=== PATIENT | male | born 1965 | race Caucasian/White ===

== ENCOUNTER 2017-05-06 15:30 | Emergency (ER) | payer SELFPAY ==
[~2017-05-06] VITALS: Ht 182.9 cm; Wt 90.7 kg
[2017-05-06 17:04] LABS: Basophils # (auto) 0 uL; Basophils % (auto) 0.2 % (0.0-2.0); Eosinophils # (auto) 0 uL; Eosinophils % (auto) 0.1 % (0.0-7.0); Hematocrit 34.6 % (41.0-53.0); Hemoglobin 11.1 g/dL (13.5-17.5); Lymphocytes # (auto) 1.3 uL; Lymphocytes % (auto) 5.7 % (10.0-50.0); Mean Corpuscular Hemoglobin 28.4 pg (28.0-32.0); Mean Corpuscular Volume 88.7 fL (80.0-100.0); Monocytes # (auto) 1.5 uL; Monocytes % (auto) 6.6 % (0.0-12.0); Neutrophils # (auto) 19.4 uL; Neutrophils % (auto) 87.4 % (37.0-80.0); Platelet Count (auto) 204 10^3/uL (140-450); Red Cell Distribution Width 13.7 % (11.8-14.3); White Blood Cell 22.3 10^3/uL (4.4-10.8)
[2017-05-06 17:24] LABS: Albumin 3.3 g/dL (3.4-5.0); BUN/Creatinine Ratio 11.9; Bilirubin, Total 0.4 mg/dL (0.2-1.0); Calcium 7.6 mg/dL (8.5-10.1); Magnesium 2.1 mg/dL (1.6-2.6); Potassium 3.6 mmol/L (3.5-5.1)
[2017-05-06] MEDS ORDERED: TETANUS-DIPTH-ACEL PERTUSSIS 0.5ML SYRG IM ONE (18:30)
[2017-05-06] MEDS ORDERED: cefTRIAXone 1GM/10ml IVPUSH 10 ML IV ONE (18:30)
[2017-05-06] MEDS ORDERED: SODIUM CHLORIDE 0.9% 2,000 ML IV ONE ×2 (18:30→22:00)
[2017-05-06] MEDS ORDERED: IOHEXOL 300 MG/ML 100ML BOTTLE IJ ONE (18:33)
[2017-05-06] MEDS ORDERED: fentaNYL CITRATE 100 MCG/2 ML VL ONE (19:57)
[2017-05-06] MEDS ORDERED: ETOMIDATE (2MG/ML) 20ML VIAL IV ONE ×2 (19:57→21:15)
[2017-05-06] MEDS ORDERED: SUCCINYLCHOLINE CHLORIDE 20 MG/ML 10ML VIAL IV ONE ×2 (19:57→21:15)
[2017-05-06] MEDS ORDERED: MIDAZOLAM DRIP 50 mg/50mL 50 ML IV ONE (20:04)
[2017-05-06] MEDS ORDERED: NOREPINEPHRINE 8 MG/250ML KIT 250 ML IV ONE (20:05)
[2017-05-06] MEDS ORDERED: HETASTARCH 500 ML IV ONE ×2 (20:07→21:30)
[2017-05-06] MEDS ORDERED: VANCOMYCIN 1GM/250ML 250 ML IV ONE ×2 (20:25→21:15)
[2017-05-06] MEDS ORDERED: VANCOMYCIN PER PHARMACY 0 MG IV SCH (20:30)
[2017-05-06] MEDS ORDERED: phytonadione 1 ML ONE (20:53)
[2017-05-06 20:54] VITALS: BP 98/54
[2017-05-06] MEDS ORDERED: fentaNYL CITRATE 100 MCG/2 ML VL IV ONE ×2 (21:00)
[2017-05-06] MEDS ORDERED: PHYTONADIONE (VIT K)10 MG/ML 1ML VIAL SUBCUT ONE (21:00)
[2017-05-06] MEDS ORDERED: MIDAZOLAM DRIP 50 mg/50mL 50 ML IV SCH (21:25)
[2017-05-06] MEDS ORDERED: NOREPINEPHRINE 8 MG/250ML KIT 250 ML IV SCH (21:30)
[2017-05-06] MEDS ORDERED: ONDANSETRON HCL 4 MG/2 ML VIAL IV ONE (22:15)
== END 2017-05-06 22:49 | disposition short-term general hospital (02) ==
LOC: ER 15:34
DX: S36.031A Moderate laceration of spleen, initial encounter (principal); S13.4XXA Sprain of ligaments of cervical spine, initial encounter; V22.4XXA Motorcycle driver injured in collision with two- or three-wheeled motor vehicle in traffic accident, initial encounter; Y93.55 Activity, bike riding; Y92.410 Unspecified street and highway as the place of occurrence of the external cause; Y99.8 Other external cause status
CPT/HCPCS: 31500; 36415; 36600; 51702; 70450; 71045; 71250; 72125; 74177; 80053; 82805; 82962; 83735; 84484; 85025; 86850; 86900; 86901; 86920; 90471; 90715; 93005; 96361; 96365; 96367; 96368; 96372; 96375; 99291; J0330; J2250; J3010; J3370; J3430; J7030; P9016; Q9967; 36430; 94002